=== PATIENT | male | born 2000 | race Hispanic/Latino ===

== ENCOUNTER 2019-08-29 23:25 | Emergency (ER) | payer MEDICAID, OTHER | END 2019-08-30 00:23 | disposition home or self-care (01) | LOC: EDH 23:25 | DX: M62.830 Muscle spasm of back (principal) ==

== ENCOUNTER 2021-03-25 12:48 | Emergency (ER) | payer OTHER ==
[~2021-03-25] VITALS: Ht 180.3 cm; Wt 92.1 kg
[2021-03-25 12:51] VITALS: BP 132/70
[2021-03-25] MEDS ORDERED: IBUPROFEN 800 MG TAB PO ONE (13:30)
[2021-03-25] MEDS ORDERED: NAPR-1180 PO (13:41)
== END 2021-03-25 13:56 | disposition home or self-care (01) ==
LOC: EDH 12:48
DX: S63.502A Unspecified sprain of left wrist, initial encounter (principal); Z79.1 Long term (current) use of non-steroidal anti-inflammatories (NSAID); W22.8XXA Striking against or struck by other objects, initial encounter; Y93.89 Activity, other specified; Y92.89 Other specified places as the place of occurrence of the external cause; Y99.8 Other external cause status
CPT/HCPCS: 73100; 73120

== ENCOUNTER 2022-04-04 12:52 | Emergency (ER) | payer OTHER ==
[~2022-04-04] VITALS: Ht 180.3 cm; Wt 90.7 kg
[~2022-04-04 12:52] MED LIST: NAPR-1180 PO
[2022-04-04 12:56] VITALS: BP 132/89
== END 2022-04-04 15:26 | disposition home or self-care (01) ==
LOC: EDH 12:52
DX: R51.9 Headache, unspecified (principal); R11.0 Nausea; Z53.21 Procedure and treatment not carried out due to patient leaving prior to being seen by health care provider

== ENCOUNTER 2022-05-19 07:10 | Emergency (ER) | payer OTHER ==
[~2022-05-19] VITALS: Ht 182.9 cm; Wt 90.7 kg
[2022-05-19] MEDS ORDERED: DIAZEPAM 5 MG/ML 2 ML SYG IV PRN (07:30)
[2022-05-19] MEDS ORDERED: 0.9%NACL 1000ML 1,000 ML IV SCH (07:30)
[2022-05-19 07:39] LABS: BASOPHILS % (AUTO) 0.3 % (0.0-5.0); EOSINOPHILS % (AUTO) 0.2 % (0.0-8.0); HEMATOCRIT 42.4 % (42-54); LYMPHOCYTES % (AUTO) 21.9 % (21.0-51.0); MEAN CORPUSCULAR HEMOGLOBIN 29.3 pg (27.0-33.0); MEAN CORPUSCULAR HGB CONC 35.6 g/dL (32.0-36.0); MEAN CORPUSCULAR VOLUME 82.2 fL (79-99); MONOCYTES % (AUTO) 8.1 % (3.0-13.0); PLATELET COUNT (AUTO) 284 K/uL (130-400); RED BLOOD CELL COUNT(AUTO) 5.16 MIL/uL (4.50-6.20); WHITE BLOOD COUNT (AUTO) 6.6 K/uL (4.8-10.8)
[2022-05-19 08:08] VITALS: BP 136/88
[2022-05-19 08:09] LABS: CREATININE 1.4 mg/dL (0.5-1.5); POTASSIUM 3.3 mmol/L (3.5-5.1)
== END 2022-05-19 08:26 | disposition home or self-care (01) ==
LOC: EDH 07:10
DX: F14.129 Cocaine abuse with intoxication, unspecified (principal); F41.9 Anxiety disorder, unspecified; Z79.1 Long term (current) use of non-steroidal anti-inflammatories (NSAID)
CPT/HCPCS: 99285; 96374; 71045; 84484; 80053; 85025; 36415; 93005; J7030; J3360

== ENCOUNTER 2022-10-27 11:23 | Emergency (ER) | payer BC, OTHER ==
[~2022-10-27] VITALS: Ht 180.3 cm; Wt 94.8 kg
[2022-10-27 11:34] VITALS: BP 185/89
[2022-10-27 12:11] LABS: APPEARANCE,URINE CLEAR (CLEAR); BILIRUBIN,URINE NEGATIVE (NEGATIVE); COLOR,URINE COLORLESS (YELLOW); GLUCOSE, URINE (UA) NEGATIVE (NEGATIVE); KETONES,URINE NEGATIVE (NEGATIVE); LEUKOCYTE ESTERASE ,URINE NEGATIVE Leu/uL (NEGATIVE); NITRATE,URINE NEGATIVE (NEGATIVE); OCCULT BLOOD,URINE NEGATIVE (NEGATIVE); PH,URINE 7.5 (5.0-8.0); PROTEIN,URINE NEGATIVE (NEGATIVE); UROBILINOGEN,URINE 0.2 mg/dL (0.2-1.0)
[2022-10-27 12:12] LABS: BASOPHILS % (AUTO) 0.5 % (0.0-5.0); EOSINOPHILS % (AUTO) 1.8 % (0.0-8.0); HEMATOCRIT 44.6 % (42-54); LYMPHOCYTES % (AUTO) 34.2 % (21.0-51.0); MEAN CORPUSCULAR HGB CONC 34.8 g/dL (32.0-36.0); MEAN CORPUSCULAR VOLUME 83.5 fL (79-99); MONOCYTES % (AUTO) 8.2 % (3.0-13.0); NEUTROPHILS % (AUTO) 54.8 % (40.0-77.0); PLATELET COUNT (AUTO) 289 K/uL (130-400); RED BLOOD CELL COUNT(AUTO) 5.34 MIL/uL (4.50-6.20); RED CELL DISTRIBUTION WIDTH 12.4 % (11.0-15.5); WHITE BLOOD COUNT (AUTO) 3.9 K/uL (4.8-10.8)
[2022-10-27 12:12] LABS: AMPHET/METH SCREEN,URINE NEGATIVE (NEGATIVE); BARBITURATE SCREEN, URINE NEGATIVE (NEGATIVE); BENZODIAZEPINES SCREEN,URINE NEGATIVE (NEGATIVE); CANNABINOID SCREEN,URINE POSITIVE (NEGATIVE); COCAINE SCREEN,URINE POSITIVE (NEGATIVE); OPIATE SCREEN,URINE NEGATIVE (NEGATIVE); PHENCYCLIDINE SCREEN,URINE NEGATIVE (NEGATIVE)
[2022-10-27 12:22] LABS: CREATININE 1.1 mg/dL (0.5-1.5); POTASSIUM 4.2 mmol/L (3.5-5.1)
[2022-10-27 12:26] LABS: ALBUMIN 4.4 g/dL (3.5-5.0); TOTAL PROTEIN, SERUM 7.5 g/dL (6.0-8.3)
== END 2022-10-27 14:07 | disposition home or self-care (01) ==
LOC: EDH 11:23
DX: R06.02 Shortness of breath (principal); R07.89 Other chest pain; F41.9 Anxiety disorder, unspecified
CPT/HCPCS: 36415; 80053; 80305; 81003; 85025; 93005